=== PATIENT | male | born 1980 | race Caucasian/White ===

== ENCOUNTER 2019-01-17 21:46 | Emergency (ER) | payer BC ==
--- NOTE | 2019-01-17 23:17 | EDM.PDOCBH ---
ED HPI GENERAL MEDICAL PROBLEM - General Chief Complaint: Behavioral/Psych Stated Complaint: EVAL Time Seen by Provider: 01/17/19 23:00 Source of Information: Reports: Patient History Limitations: Reports: No Limitations - History of Present Illness INITIAL COMMENTS - FREE TEXT/NARRATIVE: 38 yo with hx of depression presents with concerns of suicidal ideation. He is visiting the area from [place]. He reported was confrontational with his family today. He father was going to being him back to [place] when he made suicidal statements in the car. His father then pulled over to get help from police. The reports he has not plan for suicide. He does endorse etoh use most of the day today. - Related Data Allergies Allergy/AdvReac Type Severity Reaction Status Date / Time No Known Allergies Allergy Verified 01/18/19 05:40 Home Meds: Home Meds Citalopram Hydrobromide [Celexa] 40 mg PO BEDTIME 01/17/19 [History] lamoTRIgine [Lamotrigine] 300 mg PO BEDTIME 01/17/19 [History] ED ROS GENERAL - Review of Systems Review Of Systems: See Below Constitutional: Reports: No Symptoms HEENT: Reports: No Symptoms Respiratory: Reports: No Symptoms Cardiovascular: Reports: No Symptoms Endocrine: Reports: No Symptoms GI/Abdominal: Reports: No Symptoms : Reports: No Symptoms Musculoskeletal: Reports: No Symptoms Skin: Reports: No Symptoms Neurological: Reports: No Symptoms Psychiatric: Reports: Suicidal Ideation Hematologic/Lymphatic: Reports: No Symptoms Immunologic: Reports: No Symptoms ED EXAM, BEHAVIORAL HEALTH - Physical Exam Exam: See Below Exam Limited By: No Limitations General Appearance: Alert, No Apparent Distress Ears: Normal External Exam Nose: Normal Inspection Throat/Mouth: Normal Inspection Head: Atraumatic, Normocephalic Neck: Normal Inspection Respiratory/Chest: No Respiratory Distress Cardiovascular: Regular Rate, Rhythm GI/Abdominal: Soft, Non-Tender Back Exam: Normal Inspection Extremities: Normal Inspection Neurological: Alert Psychiatric: Alert, Suicidal Thoughts Skin Exam: Warm, Dry COURSE, BEHAVIORAL HEALTH COMP - Course Vital Signs: Last Vital Signs Temp 37.2 C 01/17/19 22:35 Pulse 70 01/17/19 22:35 Resp 18 01/17/19 22:35 BP 137/63 01/17/19 22:35 Pulse Ox 97 01/17/19 22:35 Orders, Labs, Meds: Laboratory Tests 01/17/19 01/17/19 Range/Units 22:17 22:17 Urine Color Yellow Urine Appearance Clear Urine pH 5.0 (4.5-8.0) Ur Specific [place] 1.015 (1.008-1.030) Urine Protein Negative (NEGATIVE) mg/dL Urine Glucose (UA) Normal (NEGATIVE) mg/dL Urine Ketones Negative (NEGATIVE) mg/dL Urine Occult Blood Negative (NEGATIVE) Urine Nitrite Negative (NEGAITVE) Urine Bilirubin Negative (NEGATIVE) Urine Urobilinogen Normal (NORMAL) mg/dL Ur Leukocyte Esterase Negative (NEGATIVE) Urine RBC Not seen (0-5) Urine WBC Not seen (0-5) Ur Epithelial Cells Rare Amorphous Sediment Not seen Urine Bacteria Rare Urine Mucus Not seen Urine Opiates Screen Negative (NEGATIVE) Ur Oxycodone Screen Negative (NEGATIVE) Urine Methadone Screen Negative (NEGATIVE) Ur Propoxyphene Screen Negative (NEGATIVE) Ur Barbiturates Screen Negative (NEGATIVE) Ur Tricyclics Screen Negative (NEGATIVE) Ur Phencyclidine Scrn Negative (NEGATIVE) Ur Amphetamine Screen Negative (NEGATIVE) U Methamphetamines Scrn Negative (NEGATIVE) Urine MDMA Screen Negative (NEGATIVE) U Benzodiazepines Scrn Negative (NEGATIVE) U Cocaine Metab Screen Negative (NEGATIVE) U Marijuana (THC) Screen Negative (NEGATIVE) Re-Assessment/Re-Exam: 38 yo presents with suicidal ideation. Hx of depression. Currently denies SI, never had plan. Significant etoh use today, will re-assess once clinically sober. Discharge vs Psych Eval/Treatment:: On re-eval clinically sober. Denies any current SI Reports no history of self harm Safe for d/c 01/18/19 05:47 Departure - Departure Time of Disposition: 05:48 Disposition: Home, Self-Care 01 Clinical Impression: Suicidal ideation - Discharge Information Instructions: Suicidal Feelings: How to Help Yourself Referrals: PCP,None [Primary Care Provider] - Forms: ED Department Discharge Additional Instructions: Please return to the ER if you have feeling of wanting to hurt yourself
== END 2019-01-18 06:52 | disposition home or self-care (01) ==
LOC: JP.ED 21:46
DX: F32.9 Major depressive disorder, single episode, unspecified (principal); Z79.899 Other long term (current) drug therapy
CPT/HCPCS: 80305-QW; 81001; 99284